=== PATIENT | male | born 1960 | race Caucasian/White ===

== ENCOUNTER 2022-05-06 10:10 | Outpatient (CLI) | payer OTHER, SELFPAY ==
[2022-05-06 14:36] LABS: Chloride* 103 mmol/L (96-114)
[2022-05-06 14:37] LABS: Potassium* 4.2 mmol/L (3.6-5.1); Sodium* 139 mmol/L (135-149)
[2022-05-06 14:39] LABS: Blood Urea Nitrogen* 21 mg/dL (7-30); Carbon Dioxide* 27 mmol/L (20-32); Cholesterol* 164 mg/dL (90-199); Creatinine* 0.9 mg/dL (0.5-1.5); Estimated Glomerular Filt Rate 97 ml/min
[2022-05-06 14:40] LABS: Calcium* 9.3 mg/dL (8.4-10.6); Glucose* 95 mg/dL (60-115); HDL Cholesterol* 40 mg/dL (>=40); LDL Cholesterol Calculated 113 mg/dL (<100); Triglycerides* 56 mg/dL (40-149)
[2022-05-06 15:11] LABS: PSA Screen* 0.83 ng/mL (0.10-4.00)
== END 2022-05-06 10:11 | disposition home or self-care (01) ==
PROVIDERS: PCP Family Medicine; Visit Provider Family Medicine
DX: Z00.00 Encounter for general adult medical examination without abnormal findings (principal); Z12.5 Encounter for screening for malignant neoplasm of prostate; Z13.1 Encounter for screening for diabetes mellitus; Z13.6 Encounter for screening for cardiovascular disorders
CPT/HCPCS: 80048; 80061; 84153

== ENCOUNTER 2023-05-09 10:08 | Outpatient (CLI) | payer OTHER, SELFPAY | END 2023-05-09 10:09 | disposition home or self-care (01) | PROVIDERS: PCP Family Medicine; Visit Provider Family Medicine | DX: Z00.00 Encounter for general adult medical examination without abnormal findings (principal); Z12.5 Encounter for screening for malignant neoplasm of prostate; Z13.6 Encounter for screening for cardiovascular disorders; Z13.1 Encounter for screening for diabetes mellitus | CPT/HCPCS: 80048; 80061; 84153 ==

== ENCOUNTER 2024-05-24 08:37 | Outpatient (CLI) | payer OTHER, SELFPAY ==
--- OUTSIDE RECORDS SUMMARY | 2024-05-24 08:45 | XMS_ITS | Clinical Summary ---
Author Organization [facility] Address [place], [place] [address] Care Team Providers Care Darkroom Technician Name Role Phone Dallin Green MD Primary Care Provider Medications No known medications Active Problems Problem Noted Date Diagnosed Date Urinary urgency 10/31/2016 Immunizations Name Administration Dates Next Due Tdap 07/20/2015 Social History Tobacco Use Types Packs/Day Years Used Date Smoking Tobacco: Never Assessed Sex and Gender Information Value Date Recorded Sex Assigned at Not on file Gender Identity Not on file Sexual Orientation Not on file Last Filed Vital Signs Vital Sign Reading Time Taken Comments Blood Pressure 120/76 10/31/2016 2:06 PM [facility] Pulse 80 10/31/2016 2:06 PM [facility] Temperature - - Respiratory Rate - - Oxygen Saturation - - Inhaled Oxygen Concentration - - Weight 72.1 kg (159 lb) 10/31/2016 2:06 PM [facility] Height - - Body Mass Index - - Plan of Treatment Health Maintenance Due Date Last Done Comments Depression screening for age 12+ 1973 HIV for age 15-65 01/02/1976 BMI (ht and wt on same day) for age 18+ 1979 Hepatitis C screening for ag e 18-79 1979 Colonoscopy through age 75 2006 Lipids for age 45-75 2006 Zoster (shingles) series for age 50+ (1 of 2) 2011 COVID-19 vaccine series (2022- season) 2024 Influenza for age 50-64 05/05/2024 Tetanus booster 07/20/2025 07/20/2015 Tdap Completed 07/20/2015 Pneumococcal series for age 6-64 Aged Out No longer eligible based on patient's age to complete this topic Care Teams Darkroom Technician Relationship Specialty Start Date End Date Dallin Green MD PCP - General Family Practice 10/26/16
--- OUTSIDE RECORDS SUMMARY | 2024-05-24 08:45 | XMS_ITS | Clinical Summary ---
Author Organization [facility] Address [address] [place] [id number] Care Team Providers Care Weapons Engineer Name Role Phone Dallin Green MD Primary Care Provider [phone] [facility] Medications Medication Sig Dispensed Refills Start Date End Date Status metoprolol succinate, XL, (TOPROL XL) 25 mg oral extended release tablet 24 HR Take 25 mg by mouth once daily. Active GABAPENTIN ORAL Take 1,800 mg by mouth once daily. Active Social History Tobacco Use Types Packs/Day Years Used Date Smoking Tobacco: Never Assessed Sex and Gender Information Value Date Recorded Sex Assigned at Not on file Gender Identity Not on file Sexual Orientation Not on file Plan of Treatment Health Maintenance Due Date Last Done Comments Colonoscopy 1961 Hepatitis C Screening 1961 Lipid Screening 1961 Anxiety Screening (KAVITA-2) 1962 Depression Assessment (PHQ-2) 1962 Yearly Review of HCD 2011 Zoster Vaccine (1 of 2) 2011 COVID-19 Vaccine ( - 2023-2 5 season) 2024 Influenza Vaccine (#1) 2024 Adult Tetanus Booster 07/20/2025 07/20/2015 RSV Vaccines (1 - 1-dose 75+ series) 01/02/2036 Pneumococcal <65 Aged Out No longer e ligible based on patient's age to complete this topic Care Teams Weapons Engineer Relationship Specialty Start Date End Date Dallin Green MD PCP - General 08/22/17 [facility] PCP - Primary Care Clinic 08/22/17
--- OUTSIDE RECORDS SUMMARY | 2024-05-24 08:45 | XMS_ITS | Referral Summary ---
Author Organization [facility] Address [address] [place] [id number] Care Team Providers Care Financial Aid Coordinator Name Role Phone Dallin Green MD Primary Care Provider [phone] [facility] Unavailable Medications Medication Sig Dispensed Refills Start Date [...] Orientation Not on file Plan of Treatment Not on file Care Teams Financial Aid Coordinator Relationship Specialty Start Date End Date Dallin Green MD PCP - General 08/22/17 [facility] PCP - Primary Care Clinic 08/22/17
== END 2024-05-24 08:38 | disposition home or self-care (01) ==
PROVIDERS: PCP Family Medicine; Visit Provider Family Medicine
DX: Z12.5 Encounter for screening for malignant neoplasm of prostate (principal); Z13.220 Encounter for screening for lipoid disorders; Z13.228 Encounter for screening for other metabolic disorders; Z13.89 Encounter for screening for other disorder; Z00.00 Encounter for general adult medical examination without abnormal findings; Z13.0 Encounter for screening for diseases of the blood and blood-forming organs and certain disorders involving the immune mechanism; Z13.6 Encounter for screening for cardiovascular disorders; Z13.1 Encounter for screening for diabetes mellitus
CPT/HCPCS: 80048; 80061; G0103

== ENCOUNTER 2025-02-28 09:28 | Outpatient (CLI) | payer OTHER, SELFPAY | END 2025-02-28 09:29 | disposition home or self-care (01) | PROVIDERS: PCP Family Medicine; Visit Provider Family Medicine | DX: R51.9 Headache, unspecified (principal) | CPT/HCPCS: 86140; 86141 ==

== ENCOUNTER 2025-04-22 10:46 | Outpatient (CLI) | payer OTHER, SELFPAY | END 2025-04-22 10:47 | disposition home or self-care (01) | LOC: LKVREF 10:47 | PROVIDERS: PCP Family Medicine; Visit Provider Family Medicine | DX: Z12.5 Encounter for screening for malignant neoplasm of prostate (principal) | CPT/HCPCS: G0103 ==

== ENCOUNTER 2025-05-17 11:55 | Emergency (ER) | payer OTHER, SELFPAY ==
--- OUTSIDE RECORDS SUMMARY | 2025-05-17 11:56 | XMS_ITS | Clinical Summary ---
Author Organization [facility] Address [address] [place] [id number] Care Team Providers Care Admission Specialist Name Role Phone Dallin Green MD Primary Care Provider [phone] Allergies No known active allergies Medications gabapentin 300 mg capsule Take 600 mg by mouth two times daily. Active metoprolol succinate 25 mg Sustained-Releas e tabletIndication s:Palpitations Take 1 Tablet (25 mg) by mouth once daily. Active SUMAtriptan 100 mg tabletIndication s:Chronic tension-type headache, not intractable 100 milligram oral daily as needed migraines 30 Tablet Active tiZANidine 2 mg tabletIndication s:Chronic tension-type headache, not intractable 2 milligram oral twice daily as needed muscle spasm 60 Tablet Active Active Problems Problem Noted Date Diagnosed Date Spells of decreased attentiveness 02/28/2025 Chronic headache 02/28/2025 Sinus bradycardia 02/28/2025 Urinary urgency 10/31/2016 Encounters Date Type Department Care Team Description 02/28/2025 9:37 PM CDT - 03/02/2025 1:02 PM CDT Hospital Encounter [facility] [address] [place] [address] [facility] [place] Of Bright Harman MD Prebil, Ana Madrigal MD Chronic tension-type headache, not intractable (Primary Dx); Palpitations Discharge Disposition: Home Self Care 02/28/2025 1:22 PM CDT - 02/28/2025 8:21 PM CDT Emergency [facility] [address] [facility] [place] [address] Kolton Clifford MD Pohland, Jonathan Cooper, MD Nonintractable headache, unspecified chronicity pattern, unspecified headache type (Primary Dx); Spells of decreased attentiveness Discharge Disposition: Short Term/PPS Hosp 02/28/2025 Travel from Last 3 Months Immunizations Immunization Administration Dates Next Due Tdap 07/20/2015 Social History Tobacco Use Types Packs/Day Years Used Date Smoking Tobacco: Never Smokeless Tobacco: Never Tobacco Cessation:Counseling Given: Not Answered Alcohol Use Standard Drinks/Week Comments Never 0 (1 standard drink = 0.6 oz pur e alcohol) Social Connections Answer Date Recorded Do you often feel lonely or isolated from those around you? 0 03/01/2025 Financial Resource Strain Answer Date R ecorded Difficulty of Paying Living Expenses 3 03/01/2025 Difficulty of Paying Living Expenses Not on file 03/01/2025 Food Insecurity Answer Date Recorded Do you worry your food will run out before you are able to buy more? 1 03/01/2025 Transportation Needs Answer Date Record ed Does lack of transportation keep you from medica l appointments? 1 03/01/2025 Does lack of transportation keep you from work, meetings or getting things that you need? 1 03/01/2025 Housing Stability Answer Date Recorded What is your housing situation today? 1 03/01/2025 Interpersonal Safety Answer Date Record ed Are you being hit, kicked, p ushed or yelled at (see row info)? No 03/01/2025 Interpersonal Safety Abuse 12 - 18 Not on file 03/01/2025 Interpersonal Safety Ambulatory Vulnerability No t on file 03/01/2025 Utilities Answer Date Recorded Do you have trouble paying f or utilities (for example, heat, electricity, water, phone)? 1 03/01/2025 Sex and Gender Information Value Date Recorded Sex Assigned at Not on file Legal Sex Male 9:53 AM CDT Gender Identity Not on file Sexual Orientation Not on file Obstetrics History Last Filed Vital Signs Vital Sign Reading Time Taken Comments Blood Pressure 135/83 03/02/2025 8:56 AM CDT Pulse 64 03/02/2025 11:03 AM CDT Temperature 36.4 C (97.6 F) 03/02/2025 8:56 AM CDT Respiratory Rate 16 03/02/2025 8:56 AM CDT Oxygen Saturation 98% 03/02/2025 8:56 AM CDT Inhaled Oxygen Concentration - - Weight 70.3 kg (155 lb) 02/28/2025 1:15 PM CDT Height 177.8 cm (5' 10) 02/28/2025 1:15 PM CDT Body Mass Index 22.24 02/28/2025 1:15 PM CDT Plan of Treatment Health Maintenance Due Date Last Done Comments Depression screening for age 12+ 1973 HIV for age 15-65 01/02/1976 BMI (ht and wt on same day) for age 18+ 1979 Hepatitis C screening for age 18-79 1979 Pneumococcal series for age 50+ (1 of 2 - PCV) 01/02/1980 Colonoscopy through age 75 2006 Lipids for age 45-75 2006 Zoster (shingles) series for age 50+ (1 of 2) 2011 RSV vaccine for adults or (1 - Risk 60-74 years 1-dose series) 2021 Influenza Vaccine (#1) 2025 Tetanus booster 07/20/2025 07/20/2015 COVID-19 vaccine series Completed 08/15/20 24, 08/14/2023, 08/18/2022, Additional history exists Hepatitis B series for 19+ Aged Out N o longer eligible based on patient's age to complete this topic Procedures Procedure Name Priority Date/Time Associated Diagnosis Comments SCAN-CARDIAC STRIP 03/02/2025 1: 42 AM CDT MR HEAD BRAIN WWO Routine 03/01/2025 8:4 4 PM CDT MR SPINE CERVICAL WO Routine 03/01/2025 7:53 PM CDT SCAN-CARDIAC STRIP 03/01/2025 12 :38 AM CDT EEG POC - STF STAT 02/28/2025 5:[address] ANGIO HEAD AND NECK CAROTID STAT 02/28/2025 3:[address] HEAD BRAIN WO STAT 02/28/2025 3:41 PM CDT TSH RADHA 02/28/2025 2:39 PM CDT CBC WITH AUTO DIFFERENTIAL STAT 02/28/2025 2:39 PM CDT PROTIME-INR STAT 02/28/2025 2:39 PM CDT BASIC METABOLIC PANEL STAT 02/28/2025 2:39 PM CDT CBC WITH AUTO DIFFERENTIAL STAT 02/28/2025 2:39 PM CDT EKG 12 LEAD STAT 02/28/2025 1:22 PM CDT from Last 3 Months Results * SCAN-CARDIAC STRIP (03/02/2025 1:42 AM CDT) us Scanner OTHER Final Result * MR HEAD BRAIN WWO (03/01/2025 8:44 PM CDT) Anatomical Region Laterality Modality BRAIN, HEAD Magnetic Resonan ce 03/02/2025 10:0 1 AM CDT Narrative 03/02/2025 10:01 AM CDT For Patients: As a result of the Cures Act, medical imaging exams and procedure reports are released immediately into your electronic medical record. You may view this report before your referring provider. If you have questions, please contact your health care provider. Indication: Headache. Seizure. Technique: Multiplanar multisequence MR imaging of the brain prior to and following intravenous administration of 20 mL Clariscan. Comparison: CT brain 02/28/2025. Findings: Mild diffuse cerebral volume loss. No mass effect or midline shift. No parenchymal signal abnormalities. No diffusion restriction to suggest acute infarction. No intracranial hemorrhage or pathologic extra-axial fluid collection. No pathologic intracranial enhancement. The hippocampal formations are symmetric in size and signal intensity. No evidence for cortical dysplasia, cortical encephalomalacia, encephalocele, or pinto matter heterotopia. The major arterial flow voids of the skull base are preserved. Globes are symmetric. Mild ethmoid sinus mucosal thickening. Trace bilateral mastoid effusions. Impression: 1. No acute intracranial abnormality. 2. No cortical structural or migration abnormality. 3. Mild diffuse cerebral volume loss. Dictated by Cali Pizano MD @ 03/02/2025 10:01:12 AM (Electronically Signed) Procedure Note Cali Pizano MD - 03/02/2025 For Patients: As a result of the Cures Act, medical imagingexams and procedure reports are released immediately into your electronicmedical record. You may view this report before your referring provider.If you have questions, please contact your health care provider. Indication: Headache. Seizure. Technique: Multiplanar multisequence MR imaging of the brain prior to and followingintravenous administration of 20 mL Clariscan. Comparison: CT brain 02/28/2025. Findings: Mild diffuse cerebral volume loss. No mass effect or midline shift. Noparenchymal signal abnormalities. No diffusion restriction to suggest acute infarction. No intracranialhemorrhage or pathologic extra-axial fluid collection. No pathologicintracranial enhancement. The hippocampal formations are symmetric in size and signal intensity. Noevidence for cortical dysplasia, cortical encephalomalacia, encephalocele,or pinto matter heterotopia. The major arterial flow voids of the skull base are preserved. Globes aresymmetric. Mild ethmoid sinus mucosal thickening. Trace bilateral mastoideffusions. Impression: 1. No acute intracranial abnormality. 2. No cortical structural or migration abnormality. 3. Mild diffuse cerebral volume loss. Dictated by Cali Pizano MD @ 03/02/2025 10:01:12 AM (Electronically Signed) us Bright Harman MD MR Final Resu lt * MR SPINE CERVICAL WO CONTRAST (03/01/2025 7:53 PM CDT) Anatomical Region Laterality Modality Spine, CERVICAL SPINE Magnetic R esonance 03/02/2025 10:0 7 AM CDT Narrative 03/02/2025 10:07 AM CDT For Patients: As a result of the Cures Act, medical imaging exams and procedure reports are released immediately into your electronic medical record. You may view this report before your referring provider. If you have questions, please contact your health care provider. Indication: Neck pain. Technique: Multiplanar multisequence noncontrast MR images of the cervical spine. Comparison: None. Findings: Cervical lordosis is maintained. No acute fracture or spondylolisthesis. No T1 hypointense lesions. Cervical cord is normal in signal intensity. C2-3: No spinal canal or neural foraminal narrowing. C3-4: Shallow broad-based right central disc protrusion. Minimal spinal canal narrowing. No neural foraminal narrowing. C4-5: Trace retrolisthesis. Mild disc height loss. Minimal endplate edema. Posterior disc bulge. Ligamentum flavum thickening. Uncinate spurring. Mild spinal canal narrowing. Minimal right without left neural foraminal narrowing. C5-6: Afbq-uw-rhzshhqr disc height loss. Posterior disc bulge. Ligamentum flavum thickening. Uncinate spurring. Pvos-jp-jyfjdbsn spinal canal narrowing. Hywn-lg-sqhixdww right without left neural foraminal narrowing. C6-7: Advanced disc height loss. Shallow posterior disc osteophyte complex. Uncinate spurring. Minimal spinal canal narrowing. Ufxc-qh-qlyhrdwx right and mild left neural foraminal narrowing C7-T1: Mild facet arthropathy. No spinal canal or neural foraminal narrowing T1-2: No spinal canal or neural foraminal narrowing. Impression: 1. Multilevel cervical spondylosis without spinal canal stenosis. 2. Nffl-tn-sjneyqgc neural foraminal narrowing on the right at C5-6 and C6-7 Dictated by Cali Pizano MD @ 03/02/2025 10:07:58 AM (Electronically Signed) Procedure Note Cali Pizano MD - 03/02/2025 For Patients: As a result of the Cures Act, medical imagingexams and procedure reports are released immediately into your electronicmedical record. You may view this report before your referring provider.If you have questions, please contact your health care provider. Indication: Neck pain. Technique: Multiplanar multisequence noncontrast MR images of the cervical spine. Comparison: None. Findings: Cervical lordosis is maintained. No acute fracture or spondylolisthesis.No T1 hypointense lesions. Cervical cord is normal in signal intensity. C2-3: No spinal canal or neural foraminal narrowing. C3-4: Shallow broad-based right central disc protrusion. Minimal spinalcanal narrowing. No neural foraminal narrowing. C4-5: Trace retrolisthesis. Mild disc height loss. Minimal endplate edema.Posterior disc bulge. Ligamentum flavum thickening. Uncinate spurring.Mild spinal canal narrowing. Minimal right without left neural foraminalnarrowing. C5-6: Grhl-by-hebdqhno disc height loss. Posterior disc bulge. Ligamentumflavum thickening. Uncinate spurring. Atfu-xi-qjczmjhn spinal canalnarrowing. Clif-tf-jwbbicof right without left neural foraminalnarrowing. C6-7: Advanced disc height loss. Shallow posterior disc osteophytecomplex. Uncinate spurring. Minimal spinal canal narrowing.Hunp-aa-vugcrris right and mild left neural foraminal narrowing C7-T1: Mild facet arthropathy. No spinal canal or neural foraminalnarrowing T1-2: No spinal canal or neural foraminal narrowing. Impression: 1. Multilevel cervical spondylosis without spinal canal stenosis. 2. Ybgy-fd-snhjdvnx neural foraminal narrowing on the right at C5-6 andC6-7 Dictated by Cali Pizano MD @ 03/02/2025 10:07:58 AM (Electronically Signed) us Patricia Durbin BULKING MACHINE OPERATOR MR Final Result * SCAN-CARDIAC STRIP (03/01/2025 12:38 AM CDT) us Scanner OTHER Final Result * EEG Point of Care - STF (02/28/2025 5:05 PM CDT) Narrative Jessica Bhakta MD - 02/28/2025 5:05 PM CDT Jessica Bhakta MD 03/01/2025 12:05 AM [facility] EEG Report Requesting Provider: Kolton Clifford MD Start Time: 02/28/25 at 1643 End Time: 02/28/25 at 2015 History: events of blacking out Patient consent: Correct patient identified Description of procedure: This EEG was obtained using a 10 lead EEG system positioned circumferentially without any parasagittal coverage (rapid EEG). Computer selected EEG is reviewed as well as background features and all clinically significant events. Description of recording: There was no discernible posterior dominant rhythm but there was normal background organization of anterior/posterior gradients. This background activity slows with the onset of drowsiness/sleep. No events were noted and no seizures were seen. There was significant artifact at the beginning of the study somewhat limiting interpretation. This was flagged by algorithm as possible seizure but was more consistent with myogenic artifact with its morphology and frequency. Impression: This 8-channel [facility] EEG showed normal background frequencies and prominent artifact. No events were marked. There are no seizures noted. Comment: [facility] is not appropriate for spell capture. If there is still persistent suspicion for continued seizure-like activity, would advise obtaining an electroencephalogram with the 10-20 international system for video with improved spatial resolution and parasagittal coverage Jessica Bhakta MD us Kolton Clifford MD NEUROLOGY ORD Edited Result - Final * CTA HEAD AND NECK CAROTID (02/28/2025 3:42 PM CDT) Anatomical Region Laterality Modality BRAIN, NECK Computed Tomogra phy 02/28/2025 3:58 PM CDT Addenda Addendum by Nick Palacios MD on 03/01/2025 8:38 AM CDT For Patients: As a result of the Century Cures Act, medical imaging exams and procedure reports are released immediately into your electronic medical record. You may view this report before your referring provider. If you have questions, please contact your health care provider. INDICATION: Headache, neck pain. TECHNIQUE: CTA neck with contrast bolus tracking, 3D angiographic rendering using maximum intensity projection (MIP) and images permanently archived. FINDINGS: There is right carotid atherosclerosis. There is no significant carotid artery stenosis or dissection. There is no significant vertebral artery stenosis or dissection. The soft tissues of the neck are within normal limits. The cervical spine is in normal alignment. Degenerative changes are noted in the cervical spine. IMPRESSION: No significant carotid or vertebral artery stenosis or dissection. Please note that all CT scans at this facility use dose modulation, iterative reconstruction, and/or weight-based dosing when appropriate to reduce radiation dose to as low as reasonably achievable. Dictated by Nick Palacios MD @ 03/01/2025 8:38:16 AM (Electronically Signed) Impressions 03/01/2025 8:35 AM CDT No acute intracranial abnormality at CTA. Please note that all CT scans at this facility use dose modulation, iterative reconstruction, and/or weight-based dosing when appropriate to reduce radiation dose to as low as reasonably achievable. Dictated by Nick Palacios MD @ 03/01/2025 8:35:54 AM (Electronically Signed) Narrative 03/01/2025 8:35 AM CDT For Patients: As a result of the Cures Act, medical imaging exams and procedure reports are released immediately into your electronic medical record. You may view this report before your referring provider. If you have questions, please contact your health care provider. INDICATION: Headache, neck pain. TECHNIQUE: CTA head with contrast bolus tracking, 3D angiographic rendering using maximum intensity projection (MIP) and images permanently archived. FINDINGS: There is normal opacification of the intracranial vasculature. There is no large vessel occlusion. No aneurysm is identified. Procedure Note Nick Palacios MD - 03/01/2025 For Patients: As a result of the Cures Act, medical imagingexams and procedure reports are released immediately into your electronicmedical record. You may view this report before your referring provider.If you have questions, please contact your health care provider. INDICATION: Headache, neck pain. TECHNIQUE: CTA head with contrast bolus tracking, 3D angiographic rendering usingmaximum intensity projection (MIP) and images permanently archived. FINDINGS: There is normal opacification of the intracranial vasculature. There is no large vessel occlusion. No aneurysm is identified. IMPRESSION: No acute intracranial abnormality at CTA. Please note that all CT scans at this facility use dose modulation,iterative reconstruction, and/or weight-based dosing when appropriate toreduce radiation dose to as low as reasonably achievable. Dictated by Nick Palacios MD @ 03/01/2025 8:35:54 AM (Electronically Signed) us Kolton Clifford MD CT Edited Result - Final * CT HEAD BRAIN WO (02/28/2025 3:41 PM CDT) Anatomical Region Laterality Modality HEAD, BRAIN Computed Tomogra phy 02/28/2025 3:56 PM CDT Impressions 02/28/2025 3:56 PM CDT Unremarkable noncontrast head CT. Please note that all CT scans at this facility use dose modulation, iterative reconstruction, and/or weight-based dosing when appropriate to reduce radiation dose to as low as reasonably achievable. Dictated by Tiera Fuentes MD @ 02/28/2025 3:56:46 PM (Electronically Signed) Narrative 02/28/2025 3:56 PM CDT For Patients: As a result of the Cures Act, medical imaging exams and procedure reports are released immediately into your electronic medical record. You may view this report before your referring provider. If you have questions, please contact your health care provider. INDICATION: Headache. TECHNIQUE: CT head without contrast. COMPARISON: None. FINDINGS: CSF spaces: Within normal limits for age. Brain parenchyma and extra-axial spaces: The pinto-white differentiation is normal. No sign of mass, hemorrhage, or midline shift. No extra-axial fluid collection. Skull base and calvarium: The visualized paranasal sinuses and mastoid air cells demonstrate no acute or significant findings. The visualized orbits are grossly unremarkable. No skull fractures. Procedure Note Tiera Fuentes MD - 02/28/2025 For Patients: As a result of the Cures Act, medical imagingexams and procedure reports are released immediately into your electronicmedical record. You may view this report before your referring provider.If you have questions, please contact your health care provider. INDICATION: Headache. TECHNIQUE: CT head without contrast. COMPARISON: None. FINDINGS: CSF spaces: Within normal limits for age. Brain parenchyma and extra-axial spaces: The pinto-white differentiation isnormal. No sign of mass, hemorrhage, or midline shift. No extra-axialfluid collection. Skull base and calvarium: The visualized paranasal sinuses and mastoid aircells demonstrate no acute or significant findings. The visualized orbitsare grossly unremarkable. No skull fractures. IMPRESSION: Unremarkable noncontrast head CT. Please note that all CT scans at this facility use dose modulation,iterative reconstruction, and/or weight-based dosing when appropriate toreduce radiation dose to as low as reasonably achievable. Dictated by Tiera Fuentes MD @ 02/28/2025 3:56:46 PM (Electronically Signed) us Kolton Clifford MD CT Final R esult * (ABNORMAL) CBC WITH AUTO DIFFERENTIAL (02/28/2025 2:39 PM CDT) WHITE BLOOD COUNT 8.1 4.5 - 11.0 thou/cu mm 02/28/2025 2:48 PM CDT [facility] RED BLOOD COUNT 4.66 4.30 - 5.90 mil/cu mm 02/28/2025 2:48 PM CDT [facility] HEMOGLOBIN 14.1 13.5 - 17.5 g/dL 02/28/2025 2:48 PM CDT [facility] HEMATOCRIT 41.1 37.0 - 53.0 % 02/28/2025 2:48 PM CDT [facility] MCV 88 80 - 100 fL 02/28/2025 2:48 PM CDT [facility] MCH 30.3 26.0 - 34.0 pg 02/28/2025 2:48 PM CDT [facility] MCHC 34.3 32.0 - 36.0 g/dL 02/28/2025 2:48 PM CDT [facility] RDW 12.0 11.5 - 15.5 % 02/28/2025 2:48 PM CDT [facility] PLATELET COUNT 178 140 - 440 thou/cu mm 02/28/2025 2:48 PM CDT [facility] MPV 10.9 6.5 - 11.0 fL 02/28/2025 2:48 PM CDT [facility] NRBC 0.0 % 02/28/2025 2:48 PM CDT [facility] ABS NRBC 0.0 thou /cu mm 02/28/2025 2:48 PM CDT [facility] % NEUT 87.7 % 02/28/2025 2:48 PM CDT [facility] % LYMPH 8.5 % 02/28/2025 2:48 PM CDT [facility] % MONO 2.5 % 02/28/2025 2:48 PM CDT [facility] % EOS 0.4 % 02/28/2025 2:48 PM CDT [facility] % BASO 0.4 % 02/28/2025 2:48 PM CDT [facility] % IMMATURE GRAN (METAS,MYELOS,WA OS) 0.5 % 02/28/2025 2:48 PM CDT [facility] ABSOLUTE NEUTROPHILS 7.1(H) 1.7 - 7.0 thou/cu mm 02/28/2025 2:48 PM CDT [facility] ABSOLUTE LYMPHOCYTES 0.7(L) 0.9 - 2.9 thou/cu mm 02/28/2025 2:48 PM CDT [facility] ABSOLUTE MONOCYTES 0.2 <0.9 thou/cu mm 02/28/2025 2:48 PM CDT [facility] ABSOLUTE EOSINOPHILS 0.0 <0.5 thou/cu mm 02/28/2025 2:48 PM CDT [facility] ABSOLUTE BASOPHILS 0.0 <0.3 thou/cu mm 02/28/2025 2:48 PM CDT [facility] ABSOLUTE IMMATURE GRANULOCYTES(MET ,MYELOS,PROS) 0.0 <0.3 thou/cu mm 02/28/2025 2:48 PM CDT [facility] Blood BLOOD SPECIMEN / Unknown IV Start / Unknown 02/28/2025 2:39 PM CDT 02/28/2025 2:45 PM CDT us Kolton Clifford MD HEMATOLOGY Final R esult [facility] [address] [place] [address] * TSH FOR ADD ON (02/28/2025 2:39 PM CDT) TSH 2.64 0.27 - 4.20 uIU/mL 03/01/2025 11:27 AM CDT [facility] Blood BLOOD SPECIMEN / Unknown IV Start / Unknown 02/28/2025 2:39 PM CDT 02/28/2025 2:45 PM CDT Narrative [facility] - 03/01/2025 11:27 AM CDT In Adults, TSH values between 5.00 and 10.00 uIU/ml do not necessarily indicate the presence of Hypothyroidism. Correlation with clinical findings such as presence of goiter and/or Thyroperoxidase (TPO) Antibody may be helpful. For more information please refer to AMANDA 2004; 291: [phone]. us Ana Molina MD CHEMISTRY Fi nal Result Performing Organization Address [facility] de Phone Number [address] [address] * (ABNORMAL) PROTIME-INR (02/28/2025 2:39 PM CDT) INR 1.2 <1.3 02/28/2025 2:56 PM CDT [facility] PROTIME 13.8(H) 10.6 - 12.4 sec 02/28/2025 2:56 PM CDT [facility] Blood BLOOD SPECIMEN / Unknown IV Start / Unknown 02/28/2025 2:39 PM CDT 02/28/2025 2:45 PM CDT Narrative [facility] - 02/28/2025 2:56 PM CDT Therapeutic Range 2.0-3.0 for most anticoagulated patients 2.5-3.5 or 4.0 for high risk patients The INR is only used for patients on stable oral anticoagulant therapy. It makes no significant contribution to the diagnosis or treatment of patients whose Protime is prolonged for other reasons. INR results are increased when heparin levels exceed 1.0 U/mL, which corresponds to an aPTT >125 seconds if the patient is on UFH. us Kolton Clifford MD HEMATOLOGY Final R esult Performing Organization Address [facility] Co de Phone Number [address] [phone] * (ABNORMAL) BASIC METABOLIC PANEL (02/28/2025 2:39 PM CDT) SODIUM 141 136 - 145 mmol/L 02/28/2025 3:05 PM CDT [facility] POTASSIUM 4.4 3.5 - 5.1 mmol/L 02/28/2025 3:05 PM CDT [facility] CHLORIDE 106 98 - 107 mmol/L 02/28/2025 3:05 PM CDT [facility] CO2,TOTAL 27 22 - 29 mmol/L 02/28/2025 3:05 PM CDT [facility] ANION GAP 8 5 - 18 02/28/2025 3:05 PM CDT [facility] GLUCOSE 117(H) 70 - 99 mg/dL 02/28/2025 3:05 PM CDT [facility] CALCIUM 9.6 8.8 - 10.4 mg/dL 02/28/2025 3:05 PM CDT [facility] Comment: Reference ranges for this test were updated on 07/09/2024 to reflect our healthy population more accurately. Reference range changes are not retroactively applied to results, but previous results using the same methodology can be interpreted in the context of the new reference range. BUN 18 8 - 23 mg/dL 02/28/2025 3:05 PM CDT [facility] CREATININE 0.95 0.70 - 1.20 mg/dL 02/28/2025 3:05 PM T [facility] BUN/CREAT RATIO 19 10 - 20 3:05 PM T [facility] eGFR 89(L) >90 mL/min/1.7 3m2 02/28/2025 3:05 PM T [facility] Comment:As of 2021, eG FR is calculated by the CKD-EPI creatinine equation without race adjustment. eGFR can be influenced by muscle mass, exercise, and diet. The reported eGFR is an estimation only and is only applicable if the renal function is stable. Blood BLOOD SPECIMEN / Unknown IV Start / Unknown 02/28/2025 2:39 PM CDT 02/28/2025 2:45 PM CDT us Kolton Clifford MD CHEMISTRY Final R esult [facility] [address] [address] * EKG 12 LEAD (02/28/2025 1:22 PM CDT) Interpretation Sinus bradycardia Otherwise normal ECG BEYOND NOW Ventricular Rate 54 BPM BEYOND NOW Atrial Rate 54 BPM BEYOND NOW P-R Interval 158 ms BEYOND NOW QRS Duration 84 ms BEYOND NOW QT 414 ms BEYOND NOW QTc 392 ms BEYOND NOW P [employer] 60 degrees BEYOND NOW R [employer] -4 degrees BEYOND NOW T [employer] 33 degrees BEYOND NOW 02/28/2025 1:22 PM CDT 03/01/2025 9:52 AM CDT us Kolton Clifford MD EKG ORD Final R esult BEYOND NOW [place], [place] from Last 3 Months Insurance [id number] [place] [id number] [employer] [place] [id number] Advance Directives * Full Code (Latest Code Status on File) Date Activated Date Inactivated Comments 02/28/2025 10:32 PM 03/02/2025 3:12 PM Question Answer Comments Code Status Discussion: Unable to Assess Preferences, Provider to review later Care Teams Admission Specialist Relationship Specialty Start Date End Date Dallin Green MD [address] [place] [id number] PCP - General Family Practice 02/28/25
--- OUTSIDE RECORDS SUMMARY | 2025-05-17 11:56 | XMS_ITS | Clinical Summary ---
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 Active GABAPENTIN ORAL Take 1,800 mg by mouth once daily. 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 Gender Identity Not on file Sexual Orientation Not on file Plan of Treatment Health Maintenance Due Date Last Done Comments Colonoscopy 1961 Hepatitis C Screening 1961 Lipid Screening 1961 Anxiety Screening (KAVITA-2) 1962 Depression Assessment (PHQ-2) 1962 Pneumococcal 50+ Years (1 of 1 - PCV) 2011 Yearly Review of HCD 2011 Influenza Vaccine (#1) 2025 Adult Tetanus Booster 07/20/2025 07/20/2015 RSV Vaccines (1 - 1-dose 75+ series) 01/02/2036 Zoster Vaccine Completed 12/22/2023, 09/26/2023 COVID-19 Vaccine Completed 08/15/2024, 07/2023, 08/18/2022, Additional history exists Meningococcal B Vaccine Aged Out No l onger eligible based on patient's age to complete this topic Insurance [employer] [place] [id number] Care Teams Body Shop Mechanic Relationship Specialty [place] [address] [place] [address] PCP - General 05/31/24
[2025-05-17 12:19] VITALS: PULSE 88; RESP 16; TEMP 37.2; O2SAT 96; BMI 22.2
--- NOTE | 2025-05-17 15:05 | ED.WOUNDLAC ---
HPI - Wound/Laceration General Date Seen: 05/17/25 Chief Complaint: Laceration/Wound Stated Complaint: cut on lip Time Seen by Provider: 05/17/25 14:01 Source: patient Mode of arrival: ambulatory Limitations: no limitations History of Present Illness HPI narrative: Patient is a 65-year-old male presenting to the emergency department for a laceration to his right live. States he was trying to pull a nail of concrete when the hammer slipped and hit him and that led. No other concerns noted. Last tetanus was 10 years ago. No other concerns noted Related Data Previous Rx's ?Medication ?Instructions ?Recorded gabapentin 300 mg capsule 900 mg (3 x 300 mg) PO TID #810 04/22/25 caps sumatriptan succinate 100 mg tablet 100 mg PO .QD #15 tabs 04/22/25 sumatriptan succinate 100 mg tablet 100 mg PO DAILY migraine headache 04/22/25 #30 tabs tizanidine 4 mg tablet 2 mg (1/2 x 4 mg) PO BID muscle 04/22/25 spasticity #90 tabs verapamil 120 mg 24 hr 120 mg PO QAM #30 caps 04/22/25 capsule,extended release Allergies Allergy/AdvReac Type Severity Reaction Status Date / Time No Known Allergies Allergy Unknown Verified 05/17/25 12:24 Review of Systems Narrative: Pertinent systems reviewed and were negative unless stated in HPI PFSH PFSH Medical History Metatarsalgia of left foot ?M77.42 - Metatarsalgia, left foot (ICD-10) Surgical History Status post decompression of ulnar nerve at elbow ?Z98.890 - Other specified postprocedural states (ICD-10) Status post carpal tunnel release ?Z98.890 - Other specified postprocedural states (ICD-10) History of hemorrhoidectomy ?Z98.890 - Other specified postprocedural states (ICD-10) History of decompression of ulnar nerve ?Z98.890 - Other specified postprocedural states (ICD-10) Social History What is your current living situation?: declined to answer Problems where you live: declined to answer In the past 12 months, utilities in danger of being shut off: declined to answer In past 12 months, lack of transportation kept you from medical appts, meetings, work, or getting things needed for daily living: declined to answer How hard is it for you to pay for the very basics like food, housing, medical care, and heating: decline to answer In the past 12 mos, have been you worried that your food would run out before you had money to buy more?: declined to answer In the past 12 mos, the food you bought just didn't last and you didn't have money to buy more?: declined to answer Smoking Status: Never smoker How often does anyone, including family, friends and others, physically hurt you: decline to answer How often does anyone, including family, friends and others, insult or talk down to you: decline to answer How often does anyone, including family, friends and others, threaten you with harm: decline to answer How often does anyone, including family, friends and others, scream or curse at you: decline to answer Health Related Social Needs: unsheltered homelessness (Z59.02) Exam Narrative: Exam Narrative: Const: Well-nourished, Well-developed, in mild distress Eyes: PERRL, no conjunctival injection, and symmetrical lids HENT: Atraumatic external nose and ears. Moist mucous membranes. Laceration to the right upper lip about 1 cm in length running through the vermilion border and into the mucosal membrane MSK:Extremities w/o deformity, Normal Active ROM Skin: Warm, Dry. No rashes or lesions. Neuro: Normal Muscle tone, No focal neurological deficits. Psych: Awake, Alert, & Oriented x3. Appropriate mood and affect. Const: Vital Signs, click to edit/add: Vital Signs - 24 hr 05/17/25 12:19 Temperature 99.0 F Pulse Rate [Pulse Oximeter] 88 Respiratory Rate 16 Pulse Oximetry 96 Oxygen Delivery Me thod Room Air Course Vital Signs Vital signs: Initial Vital Signs Temperature 99.0 F 05/17/25 12:19 Temperature Source Temporal Artery Scan 05/17/25 12:19 Pulse Rate 88 05/17/25 12:19 Respiratory Rate 16 05/17/25 12:19 Pulse Oximetry 96 05/17/25 12:19 Oxygen Delivery Method Room Air 05/17/25 12:19 Vital Signs Temperature 99.0 F 05/17/25 12:19 Pulse Rate 88 05/17/25 12:19 Respiratory Rate 16 05/17/25 12:19 Pulse Oximetry 96 05/17/25 12:19 Oxygen Delivery Method Room Air 05/17/25 12:19 Temperature 99.0 F 05/17/25 12:19 Pulse Rate 88 05/17/25 12:19 Respiratory Rate 16 05/17/25 12:19 Pulse Oximetry 96 05/17/25 12:19 Oxygen Delivery Method Room Air 05/17/25 12:19 MDM - Wound/Laceration MDM Narrative Medical decision making narrative: Patient is 65-year-old male presenting for laceration to his right lip. Does cross the vermilion border. Three sutures were placed with good approximate station of the skin. Antibiotics are not indicated at this time. Patient is otherwise doing well. Do not believe imaging is necessary. Tetanus was updated. He is safe for discharge. Discharge Plan Discharge Clinical Impression: Laceration Patient Disposition: Home, Self-Care Condition: Stable Additional Instructions: Sutures should fall out within the next 7 days. If they fall out early and UC gapping of the wound return for re-evaluation. If the wound is staying together you do not need to be re-evaluated. For next 6 months, once sutures are removed, whenever you go outside put a dab of sunscreen over the laceration site to improve scar appearance. Topical antibiotics are not necessary at this time. Patient can shower but do not submerge the laceration until sutures are removed Prescriptions: No Action verapamil 120 mg capsule,ext rel. pellets 24 hr 120 mg PO QAM Qty: 30 1RF sumatriptan succinate 100 mg tablet 100 mg PO DAILY Qty: 30 6RF sumatriptan succinate 100 mg tablet 100 mg PO .QD Qty: 15 6RF Rx Instructions: may repeat once after at least 2 hrs; do not exceed 2 doses in 24 hrs tizanidine 4 mg tablet 2 mg PO BID Qty: 90 3RF gabapentin 300 mg capsule 900 mg PO TID Qty: 810 3RF Follow Up/Referrals: Moises Billingsley MD [Primary Care Provider, Family Practice] Stand Alone [facility]: [facility] Info Instructions Procedures Laceration lip laceration: Name of person performing procedure: Medhat Albarado Site: lip Side (If applicable): right Size (cm): 1 Description: linear and clean Depth: simple, single layer Local Anesthetic: lidocaine 1% and with epi Amount of anesthesia used (mL): 2 Pre-repair: wound explored, irrigated extensively and deep structures intact Skin layer closed with: other (Fast absorbing got) Size (cm): 5-0 Number of sutures: 3 Technique: simple, interrupted Conclusion: patient tolerated procedure
[2025-05-17 15:20] VITALS: BP 137/86; PULSE 66; RESP 16; O2SAT 99
== END 2025-05-17 15:21 | disposition home or self-care (01) ==
PROVIDERS: Emergency Provider Student in an Organized Health Care Education/Training Program; PCP Family Medicine
DX: S01.511A Laceration without foreign body of lip, initial encounter (principal); W27.8XXA Contact with other nonpowered hand tool, initial encounter
CPT/HCPCS: 12011; 99283

== ENCOUNTER 2025-06-11 11:22 | Outpatient (CLI) | payer OTHER, SELFPAY | END 2025-06-11 11:23 | disposition home or self-care (01) | LOC: NFLDUCREF 11:23 | PROVIDERS: PCP Family Medicine; Visit Provider Physician Assistant Surgical | DX: R30.0 Dysuria (principal) | CPT/HCPCS: 87086 ==